=== PATIENT | female | born 1980 | race Caucasian/White ===

== ENCOUNTER 2021-04-15 18:30 | Emergency (ER) | payer MEDICAID, SELFPAY ==
[2021-04-15 18:49] VITALS: BP 132/70; PULSE 80; RESP 18; TEMP 36.6; O2SAT 96; BMI 30.8
--- NOTE | 2021-04-15 20:46 | ED.WOUNDLAC ---
HPI - Wound/Laceration General Chief Complaint: Wound/Laceration Stated Complaint: finger lac Time Seen by Provider: 04/15/21 19:47 Source: patient Mode of arrival: ambulatory Limitations: no limitations History of Present Illness HPI narrative: Patient tells me that she was sweeping and the handle of the metal broom stick broke causing a laceration to her right index finger. Tetanus up-to-date Related Data Allergies Allergy/AdvReac Type Severity Reaction Status Date / Time No Known Allergies Allergy Verified 04/15/21 18:49 Review of Systems Review of Systems: Yes all other systems are reviewed and are negative Constitutional: Constitutional: Reports no additional constitutional complaints, Denies body ache(s), Denies chills, Denies fever(s), Denies headache(s) and Denies weakness Eyes: Eyes: Reports no additional eye complaints and Denies change in vision ENT: Reports system reviewed and no additional complaints, except as documented, Denies dizziness, Denies headache(s), Denies nasal congestion, Denies nasal discharge and Denies neck pain Cardiovascular: Cardiovascular: Reports no additional cardiovascular complaints, Denies chest pain, Denies leg edema and Denies dyspnea Respiratory: Respiratory: Reports no additional respiratory complaints, Denies cough and Denies dyspnea Gastrointestinal: Gastrointestinal: Reports no additional gastrointestinal complaints, Denies abdominal pain, Denies diarrhea, Denies nausea and Denies vomiting Genitourinary: Genitourinary: Reports no additional female genitourinary complaints and Denies urinary incontinence Musculoskeletal: Musculoskeletal: Reports no additional musculoskeletal complaints, Denies back pain, Denies arthralgias, Denies joint swelling, Denies neck pain, Denies numbness and Denies tingling Integumentary/Breasts: Skin/Breast: Reports system reviewed and no additional complaints, except as docu and Denies rash Comments: + laceration Neurologic: Reports system reviewed and no additional complaints, except as documented, Denies Abnormal speech present, Denies dizziness, Denies headache(s), Denies numbness, Denies tingling and Denies weakness PMFSH Past Medical History Attestation statement: The following information was validated with the patient. Source: old records reviewed and nursing notes reviewed Social History Social History Advance Directives: No Advance Directives Information Provided: No Patient : No Physical Exam Vital Signs: Vital Signs: Last Vital Signs Temp 97.9 F 04/15/21 18:49 Pulse 80 04/15/21 18:49 Resp 18 04/15/21 18:49 BP 132/70 04/15/21 18:49 Pulse Ox 96 04/15/21 18:49 Body Mass Index 30.8 Const: General: cooperative, healthy appearing, comfortable and no acute distress Orientation/consciousness: patient oriented x3 Limitations: no limitations HENMT: Head: Yes normal to inspection Ears: hearing grossly normal bilaterally General nose exam: Normal external nose present Face and sinus: Yes normal facial exam Mouth: Normal oral and palatal mucosa present Throat: Yes posterior oropharynx normal Eyes: General: appearance normal, both eyes and all related structures Pupils: Equal, round and reactive pupils present Neck: Neck: Yes normal visual inspection Chest: Chest palpation & inspection: normal inspection of the chest Resp: Effort & Inspection: normal respiratory effort Auscultation: clear to auscultation bilaterally Cardio: Rate: regular rate Rhythm: regular rhythm Peripheral pulses: Peripheral pulses 2+ throughout GI: Inspection: Yes normal to inspection Palpation (GI): Soft to palpation and nontender Auscultation: normal bowel sounds Back/Spine/Pelvis: Thoracic/Lumbar Spine: thoracic and lumbar spine normal to inspection Skin: General skin exam: no rashes or lesions noted Neuro: General: patient oriented x3, no focal motor deficits and normal sensation to monofilament Cranial nerves: Yes Equal, round and reactive pupils present Cognition (Neuro): normal cognition Speech: No Abnormal speech present Gait exam (Neuro): Normal gait present Motor exam (neuro): 5/5 motor strength present throughout Extrem: Other: To the mid volar aspect of the right index finger there is a 1.5 centimetre laceration with no active bleeding. Full range of motion. NV intact distally General: Yes normal to inspection Course Course Course Narrative: Superficial laceration to the right index finger. Tetanus updated. See wound repair note. Reviewed worrisome signs and symptoms when to return to the emergency department. Comfortable discharge home. Procedures Laceration Laceration 1: Site: upper extremity (right index finger) Side (If applicable): left Size (cm): 1.5 Description: linear Depth: simple, single layer Pre-repair: wound explored Skin layer closed with: other (Dermabond) MDM - Wound/Laceration Medical Records Attestation: I reviewed the patient's medical records. Lab Data Attestation: I reviewed the patient's lab results. Discharge Plan Discharge Clinical Impression: Laceration Patient Disposition: Home, Self-Care Instructions: Finger Laceration (ED) Interventions: ED Discharge Assessment Last Done: 04/15/21 19:50 Discharge Date/Time: 04/15/21 19:55
== END 2021-04-15 19:55 | disposition home or self-care (01) ==
PROVIDERS: Emergency Provider Emergency Medicine; PCP Family Medicine
DX: S61.210A Laceration without foreign body of right index finger without damage to nail, initial encounter (principal); W27.8XXA Contact with other nonpowered hand tool, initial encounter; Y93.E5 Activity, floor mopping and cleaning; Y92.030 Kitchen in apartment as the place of occurrence of the external cause; Y99.9 Unspecified external cause status
CPT/HCPCS: 12001; 99283; 99284

== ENCOUNTER 2022-05-11 21:10 | Emergency (ER) | payer MEDICAID, SELFPAY | END 2022-05-11 22:46 | disposition left against medical advice (07) | PROVIDERS: Emergency Provider Emergency Medicine | DX: R10.9 Unspecified abdominal pain (principal) ==

== ENCOUNTER 2024-08-10 11:25 | Outpatient (AMB) | payer OTHER, SELFPAY ==
[2024-08-10 11:40] VITALS: BP 112/82; PULSE 74; TEMP 36.9; O2SAT 98; BMI 28.0
--- NOTE | 2024-08-10 11:40 | AM.OFFWIN_ITS ---
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 Ongoing for 3 months Patient Tobacco Use Status: Current everyday Tobacco user Allergies No Known Allergies Allergy (Verified 08/10/24 11:45) Do you need a note to return to daycare/school/sports/work: No HPI HPI Comments History of Present Illness Details 43 y/o female patient who presents to [facility] in clinic with c/o right ear discomfort and drainage for a few weeks now. Denies fevers, chills, nausea or vomiting. Denies headaches or dizziness. [facility] Social History Patient Tobacco Use Status: Current everyday Tobacco user Review of Systems Const All systems reviewed & are unremarkable except as noted in HPI and below Physical Exam Vital Signs: Last Vital Signs Temp 98.4 F 08/10/24 11:40 Pulse 74 08/10/24 11:40 BP 112/82 08/10/24 11:40 Pulse Ox 98 08/10/24 11:40 Oxygen Delivery Method Room Air 08/10/24 11:40 BMI result Body Mass Index 28.0 Const General: cooperative and no acute distress Nutritional Appearance: overweight Orientation/consciousness: patient oriented x3 HEENT Head: Yes normocephalic Ears: external ears normal and TM abnormal bulging on the right, wth effusion p urulent on the right, erythematous on the right, with fluid behind the TM on the left and retracted on the right; not perforated General nose exam: Normal nasal mucous membranes and turbinates present Face and sinus: Yes sinuses nontender Mouth: moist mucous membranes Throat: Yes postnasal drainage Resp Effort & Inspection: normal respiratory effort and able to speak in complete sentences Auscultation: clear to auscultation bilaterally, no crackles, no rales, no rhonchi and no wheezes Cardio Heart sounds: S1 normal heart sound present and S2 normal heart sound present Neuro General: patient oriented x3 Assessment & Plan Assessment & Plan (1) Otitis externa: Code(s): H60.90 - Unspecified otitis externa, unspecified ear Qualifiers: Otitis externa type: unspecified type Chronicity: acute Laterality: right Qualified Code(s): H60.501 - Unspecified acute noninfective otitis externa, right ear Plan: Ordered Abx Drops Keep ears dry and clean Acetaminophen for pain relief. Medications: New ciprofloxacin-hydrocortisone 0.2-1 % 3 drps otic (ears) BID 7 days 10 mL 0RF H60.501 - Unspecified acute noninfective otitis externa, right ear Coding Level of Care Code New Pt Level 3 (30818) Diagnoses Acute otitis externa of right ear, unspecified type H60.501 Otitis externa type: unspecified type Chronicity: acute Laterality: right Time Spent (min) 15
== END 2024-08-10 11:57 | disposition home or self-care (01) ==
PROVIDERS: Visit Provider Nurse Practitioner Family
DX: H60.501 Unspecified acute noninfective otitis externa, right ear (principal)
CPT/HCPCS: 99203

== ENCOUNTER 2024-09-04 11:51 | Outpatient (REF) | payer OTHER, SELFPAY | END 2024-09-04 11:52 | disposition home or self-care (01) | LOC: HO.LNP 11:51 | PROVIDERS: Visit Provider Physician Assistant | DX: H60.91 Unspecified otitis externa, right ear (principal); B95.61 Methicillin susceptible Staphylococcus aureus infection as the cause of diseases classified elsewhere | CPT/HCPCS: 87070; 87077; 87186; 87205 ==

== ENCOUNTER 2024-09-04 11:51 | Outpatient (AMB) | payer OTHER, SELFPAY ==
[2024-09-04 12:33] VITALS: BP 134/80; PULSE 75; O2SAT 98; BMI 28.2
--- NOTE | 2024-09-04 12:33 | AM.OFFWIN_ITS ---
Intake Vital Signs 3 09/04/24 12:33 Height 5 ft 3 in Weight 159 lb BMI 28.2 BP 134/80 Blood Pressure Location Rt brachial Position Sitting Pulse 75 Pulse Source Pulse Oximeter Pulse Oximetry (%) 98 Oxygen Delivery Method Room Air Intake Visit Reasons: Pain in RT ear Intake Note: Patient here for right ear pain, she states she was here aug 11 and was given ear drops and has worsened. Patient Tobacco Use Status: Current everyday Tobacco user Allergies No Known Allergies Allergy (Verified 08/10/24 11:45) Do you need a note to return to daycare/school/sports/work: No HPI HPI Comments 2 History of Present Illness0 Details Patient is a 43-year-old female complaining of continued right ear itchiness with discharge. She tells me she came in on August 10 was diagnosed with otitis externa given Cipro/prednisone drops to be used 3 times a day for 7 days which she did. She states her ear never got better and has only gotten worse since then. She states that it does not smells bad as it used to smell but she still has purulent chunky that come out of her ear and it is very red and tender. She denies any fevers or and states her hearing is a little bit more muffled now than it used to be. [facility] Social History Patient Tobacco Use Status: Current everyday Tobacco user Review of Systems Const All systems reviewed & are unremarkable except as noted in HPI and below Physical Exam Vital Signs: Last Vital Signs Pulse 75 09/04/24 12:33 BP 134/80 09/04/24 12:33 Pulse Ox 98 09/04/24 12:33 Oxygen Delivery Method Room Air 09/04/24 12:33 BMI result Body Mass Index 28.2 Const General: cooperative, healthy appearing, comfortable and no acute distress Orientation/consciousness: patient oriented x3 HEENT Other: Head: Yes normal to inspection, Yes No palpable skull fracture present and Yes normocephalic Ears: hearing grossly normal bilaterally, EAC's normal (erythema, edema, purulent exudate), mastoids normal (no TTP) bilaterally, external ear abnormal (right side, see photo) and unable to visualize TM on the right General nose exam: Normal external nose present Face and sinus: Yes normal facial exam Mouth: Normal oral and palatal mucosa present Teeth and gingiva: dentition normal Throat: Yes posterior oropharynx normal Eyes General: appearance normal, both eyes and all related structures Neck Neck: Yes normal visual inspection, Yes full ROM, Yes no lymphadenopathy, Yes no meningeal signs, Yes trachea midline and Yes supple Resp Effort & Inspection: normal respiratory effort and able to speak in complete sentences Skin General skin exam: no rashes or lesions noted Neuro General: patient oriented x3 and no meningeal signs Assessment & Plan Assessment & Plan (1) Otitis externa: Code(s): H60.90 - Unspecified otitis externa, unspecified ear Qualifiers: Otitis externa type: diffuse Chronicity: acute Laterality: right Q ualified Code(s): H60.311 - Diffuse otitis externa, right ear Plan: As patient failed the Cipro-hydrocortisone drops, we will prescribe Augmentin twice daily for 7 days; also sent culture of the right ear. Plan See above Orders: Orders 2 Ear Culture + Gram stain Today H60.90 - Unspecified otitis externa, unspecified ear Medications: New 2 amoxicillin-pot clavulanate 875-125 mg 1 tab PO Q12H 14 tabs 0RF Coding Level of Care Code New Pt Level 4 (18849) Diagnoses Acute diffuse otitis externa of right ear H60.311 Otitis externa type: diffuse Chronicity: acute Laterality: right
== END 2024-09-04 14:02 | disposition home or self-care (01) ==
PROVIDERS: Visit Provider Physician Assistant
DX: H60.311 Diffuse otitis externa, right ear (principal)